=== PATIENT | female | born 1980 | race Hispanic/Latino ===

== ENCOUNTER 2017-08-13 15:05 | Emergency (ER) | payer OTHER ==
[~2017-08-13] VITALS: Ht 157.5 cm; Wt 61.2 kg
[2017-08-13] MEDS ORDERED: TYLENOL325 MG PO (15:38)
[2017-08-13] MEDS ORDERED: PROTONIX40 MG PO (17:22)
== END 2017-08-13 17:37 | disposition home or self-care (01) ==
LOC: ED 15:05
DX: K21.9 Gastro-esophageal reflux disease without esophagitis (principal); Z79.899 Other long term (current) drug therapy
CPT/HCPCS: 36415; 80053; 81001; 82150; 83690; 84703; 85025; 99283